=== PATIENT | male | born 1965 | race American Indian/Alaskan Native ===

== ENCOUNTER 2021-09-28 17:34 | Emergency (ER) | payer MEDICAID ==
[2021-09-28] MEDS ORDERED: HYDROcodone/ACETAMINOPHEN 5-325 MG TAB PO ONE (17:50)
--- NOTE | 2021-09-28 17:54 | Emergency Department Report ---
<MATT RAMOS - Last Filed: 09/28/21 18:36> ED Lower Extremity HPI - General Chief Complaint: Extremity Injury, Lower Stated Complaint: LEFT ANKLE PAIN Time Seen by Provider: 09/28/21 17:49 Source: patient, family Mode of arrival: Wheelchair Limitations: Physical Limitation - History of Present Illness Initial Comments: CC: leg pain, I think I need a specialist HPI: This is a 56-year-old male who underwent ankle surgery 2 years ago at [facility] [place]. He fell over 3 stories, 50 feet. He was working on a tree. He has had deformit y pain swelling for the past 2 years walking has become more difficult. He denies chest pain. Denies shortness of breath. Denies new injury. MD Complaint: other (Chronic ankle pain chronic deformity since surgery 2 years ago) -: year(s) (2 years) Injury: Leg: Left, Knee: Left, Ankle: Left Severity: severe Improves With: nothing Worsens With: weight bearing Associated Symptoms: swelling - Related Data Previous Rx's Medication Instructions Recorded Last Taken Type HYDROcodone/APAP 5-325 [Dilliner 1 each PO Q6HR PRN #15 tablet 09/28/21 Unknown Rx 5/325] Allergies Allergy/AdvReac Type Severity Reaction Status Date / Time No Known Allergies Allergy Unverified 09/28/21 17:38 ED Review of Systems Comment: All other systems reviewed and negative Constitutional: denies: chills, fever, malaise Respiratory: denies: cough, shortness of breath Cardiovascular: denies: chest pain Gastrointestinal: denies: abdominal pain, nausea, vomiting Skin: change in color Neurological: denies: numbness, paresthesias ED Past Medical Hx - Past Medical History Previous Medical History?: Yes Additional medical history: Left ankle pain, Right knee pain - Surgical History Past Surgical History?: Yes Additional Surgical History: Left ankle, Right rib punctured right lung and had a chest tube - Social History Smoking Status: Never Smoker Substance Use Type: Alcohol - Medications Home Medications: Home Medications Medication Instructions Recorded Confirmed Last Taken Type HYDROcodone/APAP 5-325 [Dilliner 1 each PO Q6HR PRN #15 tablet 09/28/21 Unknown Rx 5/325] ED Physical Exam - General Limitations: Physical Limitation General appearance: alert, in no apparent distress - Head Head exam: Present: atraumatic, normocephalic - Eye Eye exam: Present: normal appearance - ENT ENT exam: Present: mucous membranes moist - Neck Neck exam: Present: normal inspection, full ROM - Respiratory Respiratory exam: Present: normal lung sounds bilaterally. Absent: respiratory distress, wheezes, rales, rhonchi - Cardiovascular Cardiovascular Exam: Present: regular rate, normal rhythm, normal heart sounds. Absent: systolic murmur, diastolic murmur, rubs, gallop - GI/Abdominal GI/Abdominal exam: Present: soft, normal bowel sounds. Absent: distended, tenderness, guarding, rebound - Rectal Rectal exam: Present: deferred - Extremities Exam Extremities exam: Present: other (Right lower extremity: Valgus deformity of the foot and ankle with global swelling of the leg from the knee to the ankle,) - Neurological Exam Neurological exam: Present: alert, oriented X3 - Psychiatric Psychiatric exam: Present: normal affect, normal mood - Skin Skin exam: Present: warm, dry, intact, normal color. Absent: rash ED Lower Extremity MDM - Radiology Data Radiology results: report reviewed Patient Name: ADIEL LAY Gender: Male Date of : 1965 Home Phone: Referring Provider: MATT RAMOS Organization: [facility] Accession Number: [id number] Requested Date: September 28, 2021 17:49 Report Status: Final Requested Procedure: 1 Procedure Description: XR ankle 3+V LT Modality: XR Findings Reporting MD: Paulino Hansen Dictation Time: September 28, 2021 17:25 Nuclear Weapons Custodian: Not available Product Management Intern Date: LEFT ANKLE 3 VIEW(S) INDICATION / CLINICAL INFORMATION: chronic ankle deformity hx of orif COMPARISON: None available. FINDINGS: BONES / JOINT(S): Patient is status post arthrodesis of the tibiotalar and talofibular joints. The hardware is without significant abnormality. No acute osseous abnormality. 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 SOFT TISSUES: No significant abnormality. ADDITIONAL FINDINGS: None. Signer Name: Paulino Hansen DO Signed: 09/28/2021 5:25 PM Workstation Name: [id number] - Medical Decision Making This is a 56-year-old presents with chronic pain due to deformity and previous surgical complication. X-ray obtained to rule out no injury. Duplex ultrasound obtained to rule out DVT. ED Disposition Clinical Impression: Chronic pain of left ankle, History of open reduction and internal fixation (ORIF) procedure Disposition: HOME / SELF CARE / HOMELESS Is pt being admited?: No Does the pt Need Aspirin: No Condition: Stable Prescriptions: HYDROcodone/APAP 5-325 [Dilliner 5/325] 1 each PO Q6HR PRN #15 tablet PRN Reason: Pain Referrals: CECE SAAB MD [Staff Physician] - 3-5 Days <JOSE HOFFMAN - Last Filed: 09/28/21 23:11> ED Review of Systems ROS: Stated complaint: LEFT ANKLE PAIN Other details as noted in HPI ED Course Vital Signs 09/28/21 09/28/21 09/28/21 17:41 17:58 19:36 Temperature 99.0 F Pulse Rate 97 H 82 Respiratory 20 15 18 Rate Blood Pressure 104/62 Blood Pressure 118/68 [Left] O2 Sat by Pulse 97 99 Oximetry ED Lower Extremity MDM - Radiology Data VL venous duplex LE LT INDICATION / CLINICAL INFORMATION: left leg swelling. TECHNIQUE: Duplex doppler imaging was performed using venous compression and other maneuvers. COMPARISON: None available. FINDINGS: No venous thrombosis is identified within the visualized extremity vasculature. ADDITIONAL FINDINGS: None. IMPRESSION: 1. No sonographic evidence for DVT in the visualized left lower extremity vasculature. - Medical Decision Making I was asked to follow-up on the duplex ultrasound to rule out DVT. It came back negative for any DVT or any other acute process. I immediately went upfront to discuss the negative results with the patient and give him his discharge paperwork and prescription for pain medication written by my colleague. However it appears that the patient eloped without paperwork or prescription. These have been left upfront with the nursing staff and if the patient happens to return I will be happy to discuss the results with him and we can give him his paperwork and prescription. Critical Care Time: No Critical care attestation.: If time is entered above; I have spent that time in minutes in the direct care of this critically ill patient, excluding procedure time. ED Disposition Is pt being admited?: No
--- NOTE | 2021-09-28 18:29 | XRay Report ---
LEFT ANKLE 3 VIEW(S) INDICATION / CLINICAL INFORMATION: chronic ankle deformity hx of orif COMPARISON: None available. FINDINGS: BONES / JOINT(S): Patient is status post arthrodesis of the tibiotalar and talofibular joints. The scanlon rdware is without significant abnormality. No acute osseous abnormality. Degeneration of the talonavi cular and subtalar joints. SOFT TISSUES: No significant abnormality. ADDITIONAL FINDINGS: None. Signer Name: Paulino Hansen DO Signed: 09/28/2021 6:25 PM Workstation Name: [id number]
--- NOTE | 2021-09-28 19:23 | Vascular Lab Report ---
VL venous duplex LE LT INDICATION / CLINICAL INFORMATION: left leg swelling. TECHNIQUE: Duplex doppler imaging was performed using venous compression and other maneuvers. COMPARISON: None available. FINDINGS: No venous thrombosis is identified within the visualized extremity vasculature. ADDITIONAL FINDINGS: None. IMPRESSION: 1. No sonographic evidence for DVT in the visualized left lower extremity vasculature. Signer Name: Jhonny Martin MD Signed: 09/28/2021 7:19 PM Workstation Name: [id number]
[2021-09-28 19:43] VITALS: BP 118/68
== END 2021-09-28 19:48 | disposition home or self-care (01) ==
LOC: ED 17:34
DX: G89.29 Other chronic pain (principal); M25.572 Pain in left ankle and joints of left foot; Z87.81 Personal history of (healed) traumatic fracture; Z98.890 Other specified postprocedural states
CPT/HCPCS: 99284

== ENCOUNTER 2022-06-12 14:42 | Emergency (ER) | payer MEDICAID | END 2022-06-12 16:02 | disposition left against medical advice (07) | LOC: ED 14:42 | DX: M25.572 Pain in left ankle and joints of left foot (principal); M25.562 Pain in left knee; Z53.21 Procedure and treatment not carried out due to patient leaving prior to being seen by health care provider ==

== ENCOUNTER 2022-07-29 15:42 | Emergency (ER) | payer MEDICAID ==
--- NOTE | 2022-07-30 10:34 | Electrocardiograph Report ---
[facility] Test Date: 2022-07-29 Test Time: 15:47:16 Pat Name: ADIEL LAY Department: Room: Gender: M Senior Web Engineer: AF : 1965 Requested By: JOHN REMY Order Number: [id number] Reading MD: Gian Gracia Measurements Intervals Helen Rate: 76 P: 78 MT: 155 QRS: 79 QRSD: 79 T: 76 QT: 391 QTc: 440 Interpretive Statements Sinus rhythm No previous ECG available for comparison Electronically Signed On 07-30-2022 10:34:54 EDT by Gian Gracia
== END 2022-07-30 19:00 | disposition left against medical advice (07) ==
LOC: ED 15:42
DX: R07.89 Other chest pain (principal); M25.561 Pain in right knee; Z53.21 Procedure and treatment not carried out due to patient leaving prior to being seen by health care provider
CPT/HCPCS: 93005